=== PATIENT | female | born 1995 | race Caucasian/White ===

== ENCOUNTER 2019-02-18 18:58 | Emergency (ER) | payer MEDICAID, SELFPAY ==
[2019-02-18 19:00] VITALS: BP 125/73; PULSE 75; RESP 17; TEMP 36.4; O2SAT 100; BMI 31.7
[2019-02-18 19:14] VITALS: RESP 16
--- NOTE | 2019-02-18 19:33 | ED.VIS.FEGU ---
History of Present Illness Chief Complaint: Vag Bld, Preg Informant: Patient Pain: Pelvic Pain Onset: Today Context: Gradual Onset Quality: Cramping Location: Suprapubic Current Severity: Mild Maximum Severity: Mild Issue: Vaginal bleeding. Negative for: Passing clots, Passing tissue Onset: Today - This morning, 12 hours ago Context: Gradual Onset Timing: Intermittent Current Severity: Spotting Maximum Severity: Spotting Associated Symptoms: Negative for: Dysuria, Frequency, Urgency, Hematuria Test: Positive - 17 weeks P: 3 Narrative: Also had a couple bouts of loose diarrhea today without blood in it. Spotting started earlier and is clearly not part of her bowel movements. Past Medical History - Allergies and Home Meds Allergies/Adverse Reactions: Allergies Penicillins Allergy (Verified 02/18/19 18:59) Hives Primary Care Physician: Care Physician,No Primary [Primary Care Provider] - Past Medical History: None Lives: Spouse/ Significant Other Smoking Status: Never smoker Review of Systems General: Denies: Chills, Fever, Sweats Eyes: Denies: Visual changes - bilaterally, Diplopia ENT: Denies: Rhinorrhea, Sore throat Cardiovascular: Denies: Chest pain, Palpitations Respiratory: Denies: Dyspnea, Cough, Dyspnea on exertion Gastrointestinal: Reports: Abdominal pain, Diarrhea. Denies: Nausea, Vomiting, Melena, Hematochezia Genitourinary: Denies: Dysuria, Hematuria, Frequency Musculoskeletal: Denies: Back pain, Extremity Pain Skin: Denies: Rash, Wounds Neurological: Denies: Headache, Weakness, Numbness Physical Exam Vital Signs/Narrative: Vital Signs Temp Pulse Resp BP Pulse Ox 02/18/19 19:14 16 02/18/19 19:00 97.5 F L 75 17 125/73 H 100 Inital Vital Signs reviewed: Yes General: Well nourished, Well developed, - - Appearing, NAD Head: Normocephalic, Atraumatic Eyes: Perrl, EOMI Neck: Supple, Nontender Cardiovascular: Regular rate, Regular rhythm, No murmurs. Negative for: Tachycardia Respiratory: No distress, CTA bilaterally, Chest nontender Abdomen: Soft, Nondistended, Normal bowel sounds, Tender - Suprapubic only. Negative for: Guarding, Rebound tenderness Back: Nontender, Normal Inspection. Negative for: CVA tenderness Extremities: Nontender, No edema Skin: Normal color, No rash, No Trauma Neurological: Alert, Oriented x3, Cranial nerves II-XII grossly intact, Normal Strength, Normal Sensation, Normal Gait Psychological: Normal affect, Normal Mood Diagnostic/Tx/Re-eval Laboratory Tests 02/18/19 02/18/19 Range/Units 19:46 19:39 Urine Color Straw (Yellow) Urine Clarity Clear (Clear) Urine pH 7.0 (5.0 - 8.0) Ur Specific [place] 1.005 (1.002-1.030) Urine Protein Negative (Negative) mg/dl Urine Glucose (UA) Normal (Normal) mg/dl Urine Ketones Negative (Negative) mg/dl Urine Occult Blood Negative (Negative) /ul Urine Nitrite Negative (Negative) Urine Bilirubin Negative (Negative) mg/dL Urine Urobilinogen Normal (Normal) mg/dl Ur Leukocyte Esterase Negative (Negative) /ul Urine RBC 0 SEEN (0-5) /hpf Urine WBC 0-5 SEEN (0-5) /hpf Ur Squamous Epith Cells 0-5 SEEN (5-10) /hpf Urine Bacteria 0 SEEN (None Seen) /hpf Urine Mucus 0 SEEN (<or=2+) /hpf Blood Type O POSITIVE - Medical Decision/Diagnostic Studies Ultrasound at the bedside is very reassuring. Her blood type is O+ so RhoGam is not indicated. Also did a urinalysis given her suprapubic discomfort, it is negative. Safe for outpatient follow-up. Procedures Procedure(s): Bedside obstetric ultrasound performed by ED physician --good movement, heart tones 150, anterior placenta ED Disposition - Plan for ED Patient: Disposition: Home or Assisted Living Diagnosis: Threatened in second trimester Referrals: Back Office Medical Assistant, your [Other] (2-3 days)
[2019-02-18] MEDS: Acetaminophen 325 MG Tablet 650 MG PO (19:50)
[2019-02-18 19:52] LABS: Bacteria 0 SEEN /hpf (None Seen); Mucous, Urine 0 SEEN /hpf (<or=2+); Red Blood Cells-Urine 0 SEEN /hpf (0-5)
[2019-02-18 19:55] LABS: Color, Urine Straw (Yellow); Glucose, Dipstick Normal (Normal); Ketone-Dipstick Negative (Negative); Leukocyte Esterase-Dipstick Negative /ul (Negative); Nitrite-Dipstick Negative (Negative); Occult Blood-Urine Negative /ul (Negative); Protein-Dipstick Negative (Negative); Specific Gravity, Urine 1.005 (1.002-1.030); Urine Bilirubin Dipstick Negative (Negative); Urine Clarity Clear (Clear); Urine Urobilinogen Normal (Normal)
[2019-02-18 20:04] LABS: Squamous Epithelial Cells - UA 0-5 SEEN /hpf (5-10)
[2019-02-18 20:05] LABS: White Blood Cells 0-5 SEEN /hpf (0-5)
--- NOTE | 2019-02-18 21:00 | DCINST.ED_ITS ---
ED Disposition - Plan for ED Patient: Disposition: Home or Assisted Living Diagnosis: Threatened in second trimester Instructions: POSSIBLE MISCARRIAGE (Threatened ) Referrals: Outreach Professional, your [Other] (2-3 days)
[2019-02-18 21:15] VITALS: RESP 18
== END 2019-02-18 21:17 | disposition home or self-care (01) ==
PROVIDERS: Emergency Provider Emergency Medicine
DX: O20.0 Threatened abortion (principal); Z88.0 Allergy status to penicillin; Z3A.17 17 weeks gestation of pregnancy
CPT/HCPCS: 81001; 86900; 86901; 99283

== ENCOUNTER 2019-06-01 12:41 | Emergency (ER) | payer MEDICAID, SELFPAY ==
[2019-06-01 12:47] VITALS: BP 108/75; PULSE 87; RESP 18; TEMP 36.1; O2SAT 98; BMI 34.7
--- NOTE | 2019-06-01 13:00 | EKG12_ITS ---
Test Reason : CP Blood Pressure : / mmHG Vent. Rate : 085 BPM Atrial Rate : 085 BPM P-R Int : 200 ms QRS Dur : 070 ms QT Int : 362 ms P-R-T Axes : 059 028 048 degrees QTc Int : 430 ms Normal sinus rhythm Normal ECG Confirmed by CHELLE PEREZ, LIBORIO ([id number]), script editor STEPHEN LAIRD ([id number] on 06/03/2019 9:36:08 AM Referred By: VIKTORIA/LEV Confirmed By:ROSIE CORBETT MD
--- NOTE | 2019-06-01 13:02 | VDLE_ITS ---
Reason For Study: chest pain RIGHT LEFT GSV is normal. GSV is normal. CFV is compressible, spontaneous, phasic, CFV is compressible, spontaneous, phasic, competent and demonstrates normal competent, and demonstrates normal augmentation. augmentation. FV is compressible, spontaneous, phasic, FV is compressible, spontaneous, phasic, competent and demonstrates normal competent and demonstrates normal augmentation. augmentation. POP V is compressible, spontaneous, phasic, POP V is compressible, spontaneous, phasic, competent and demonstrates normal competent and demonstrates normal augmentation. augmentation. T/P Trunk is compressible. T/P Trunk is compressible. PTV is compressible. PTV is compressible. RT PerV is compressible. LT PerV is compressible. Procedure Exam performed in department. The exam was diagnostic. A preliminary report was called and/or faxed to Dr. Dickens. Interpretation Summary No evidence for acute deep venous thrombosis bilateral lower extremities with patent and compressible bilateral great saphenous veins. Ordering Physician: Adam Dickens Performed By: Andres Alonso RVT
--- NOTE | 2019-06-01 13:10 | RAD_ITS ---
STUDY: X-RAY CHEST REASON FOR EXAM: Female, 24 years old. Chest pressure and shortness of breath. The patient is 32 weeks . TECHNIQUE: Single AP portable view of the chest. COMPARISON: None. FINDINGS: EKG electrodes are seen. The lungs are clear and expanded. An azygos lobe is seen. This is a normal variant. There is no demonstrated pleural abnormality. Normal size heart. Normal mediastinum and raven. Normal visualized pulmonary arteries. Normal visualized aortic arch and descending thoracic aorta. Normal visualized thoracic spine. Normal visualized ribs, clavicles, and shoulders. There is no demonstrated abnormality of the visualized soft tissue structures of the upper abdomen. RAD/Chest 1 View (Portable) IMPRESSION: Normal x-ray examination of the chest. Electronically Signed: Kt Weinberg, at 13:47 EST , Service support ,
[2019-06-01 13:18] LABS: Absolute Neutrophil Count 6.5 X10^3/uL (2.0-7.7); Basophil# 0.03 X10^3/uL; Basophil% 0.3 % (0-1); Eosinophil# 0.19 X10^3/uL; Hematocrit 37.3 % (37-47); Hemoglobin 12.5 g/dL (12.0-15.0); Lymphocyte % 21.8 % (19-41); Mean Corp Hgb Conc 33.5 g/dL (32-36); Mean Corpuscular Volume 89.4 fL (81-99); Mean Platelet Vol. 8.7 fl (6.2-12.0); Monocyte# 0.79 X10^3/uL; Monocyte% 8.2 % (0-10); NRBC Flagged by Analyzer 0 % (0-5); Neutrophil # 6.47 X10^3/uL (2.7-7.7); Neutrophil % 67.2 % (47-70); Platelet Count 249 K/mm3 (150-450); RBC Distribution Width CV 12.8 % (11.6-14.6); Red Blood Count 4.17 M/mm3 (4.2-5.4); White Blood Count 9.6 K/mm3 (4.4-11.0)
[2019-06-01] MEDS: Mag Hydrox/Al Hydrox/Simeth 30 ML UDC PO (13:19)
[2019-06-01 13:39] LABS: ALB/GLOB Ratio 0.7 RATIO (0.9-2.4); AST(SGOT) 11 U/L (15-37); Alanine Aminotransfer ALT/SGPT 11 U/L (13-56); Albumin, Serum 2.8 g/dL (3.2-5.0); Alkaline Phosphatase 83 U/L (45-117); Anion Gap 8 (5-15); BUN 7 mg/dL (7-18); BUN/Creat Ratio 11.3 RATIO (10-20); Calcium,Total 8.7 mg/dL (8.5-10.1); Chloride 108 mmol/L (98-107); Creatinine, Serum 0.62 mg/dL (0.55-1.02); EST Glomerular Filtration Rate 126 mL/min (>60); Est Glom Filt Rate - Afr Amer 152 mL/min (>60); Estimated Creatinine Clearance 120.82 ml/min; Globulin 3.8 g/dL (2.2-4.2); Glucose 99 mg/dL (74-106); Potassium 3.8 mmol/L (3.5-5.1); Protein, Total 6.6 g/dL (6.4-8.2); Sodium Level 140 mmol/L (136-145)
[2019-06-01 13:41] VITALS: BP 136/86; PULSE 86; RESP 16; O2SAT 98
[2019-06-01 13:47] LABS: D-Dimer Quantitative (DVT/PE) 0.32 FEU/ug/m (0.27-0.49)
[2019-06-01 14:00] VITALS: BP 139/84; PULSE 79; RESP 16; O2SAT 97
--- NOTE | 2019-06-01 14:37 | ED.VISSUMM ---
- ER Visit Summary Date of Service: 06/01/19 Chief Complaint: Chest pain History of Present Illness: The patient is a 24 F [facility] She is a G4, P3 at 31 weeks 5 days of . She reports that she has chest pain that began 10 days ago. Is a continuous stabbing pain that is 10 to 10 hours and 7-10 currently. Is worsened by laying flat. Is relieved by nothing. She reports she is been nauseated. She does report she been short of breath at times. She denies any vomiting or diaphoresis. Patient reports that she had similar plane with her prior and that she had ulcers at that time. She has not tried antacids. She denies abdominal pain. She reports she is been nauseated, but has not vomited. She had 2 episodes of diarrhea yesterday. No blood in her stools or black tarry stools. Patient denies any vaginal bleeding or discharge. She had normal movement. No fever chills. No dysuria frequency. Physical Examination: Vitals: Stable. Afebrile. General: Well-nourished and well-developed. Head: Normocephalic atraumatic. Neck: Supple, no lymphadenopathy. No JVD. Nontender. Cardiovascular: Regular rate and rhythm. No murmurs. Respiratory: No respiratory distress. Clear to auscultation bilaterally. Abdominal: Soft, nontender, nondistended, normal bowel sounds. No guarding, rebound, or peritoneal signs. Gravid uterus. Back: Nontender. Extremities: Nontender, no edema. Skin: Normal color, no rash. Neurologic: Alert and oriented ?3. Cranial nerves II through XII are intact. Normal strength and sensation. Psych: Normal affect. Test Results: EKG is sinus at 85 with no acute changes. CBC is normal. Chem-7 is more for chloride of 108. LFTs show an ALT of 11, AST of 11, albumin 2.8. Troponin is negative. D-dimer 0.32. Bilateral lower extremity Dopplers are negative. Chest x-ray shows no acute disease. Emergency Department Course and Treatment: Patient was treated with a GI cocktail which did make her chest pain resolved. She is resting comfortably. Treatment Plan: Patient was discussed with Carmela Deutsch. She will be placed on Pepcid and instructed to follow-up at her appointment next week. Return to the emergency department for any worsening symptoms. Disposition: To home in improved and stable condition. Impression: 1. Chest pain, suspect reflux. 2. Third trimester . This note was generated with ticckle dictation software. It may contain incorrect words, spelling, and punctuation that were not noted in review of the chart prior to signing ED Disposition - Plan for ED Patient: Disposition: Home or Assisted Living Instructions: CHEST PAIN, NonCardiac Prescriptions: Famotidine [Pepcid] 20 mg PO BID #56 tab Prescription Printed Referrals: Yvonne Greenfield MD [STAFF PHYSICIAN] - Keep Kamryn appointment
[2019-06-01 14:46] VITALS: BP 150/81; PULSE 102; RESP 16; O2SAT 97
[2019-06-01] MEDS: Famotidine 20 MG Tablet 40 MG PO (14:46)
== END 2019-06-01 14:51 | disposition home or self-care (01) ==
LOC: ED 14:26
PROVIDERS: Emergency Provider Emergency Medicine
DX: O26.893 Other specified pregnancy related conditions, third trimester (principal); R11.0 Nausea; R06.02 Shortness of breath; R07.9 Chest pain, unspecified; Z3A.31 31 weeks gestation of pregnancy
CPT/HCPCS: 71045; 80053; 84484; 85025; 85379; 93005; 93970; 96360; 99285; J7040; A4216

== ENCOUNTER 2019-07-25 06:45 | Inpatient (IN) | payer MEDICAID, SELFPAY ==
[2019-07-25] VITALS (18 sets, daily range): BP systolic 103–147; BP diastolic 56–94; PULSE 65–146; RESP 11–20; TEMP 36.1–36.5; O2SAT 95–100; BMI 37.7
[2019-07-25 08:12] LABS: Absolute Lymphocyte Count 2.12 X10^3/uL (0.83-4.51); Absolute Neutrophil Count 5.1 X10^3/uL (2.0-7.7); Basophil# 0.03 X10^3/uL; Basophil% 0.4 % (0-1); Eosinophil# 0.11 X10^3/uL; Eosinophils% 1.4 % (0-5); Hematocrit 37.8 % (37-47); Hemoglobin 12.3 g/dL (12.0-15.0); Lymphocyte # 2.12 X10^3/ul (4.0); Lymphocyte % 26.1 % (19-41); Mean Corp Hgb Conc 32.5 g/dL (32-36); Mean Corpuscular Hgb 28.6 pg (27.0-32.0); Mean Corpuscular Volume 87.9 fL (81-99); Mean Platelet Vol. 9.3 fl (6.2-12.0); Monocyte# 0.67 X10^3/uL; Monocyte% 8.3 % (0-10); NRBC Flagged by Analyzer 0 % (0-5); Neutrophil # 5.14 X10^3/uL (2.7-7.7); Neutrophil % 63.3 % (47-70); Platelet Count 268 K/mm3 (150-450); RBC Distribution Width CV 13.6 % (11.6-14.6); White Blood Count 8.1 K/mm3 (4.4-11.0)
[2019-07-25] MEDS: Lactated Ringers 1,000 ML 50 ML IV (08:13)
[2019-07-25] MEDS: Oxytocin 30 units/NS 500 ml 30 UNITS/500 ML IV.SOLN IV (08:13)
--- NOTE | 2019-07-25 08:19 | PCM.HP.OB ---
- Problem List (1) 39 weeks gestation of Status: Acute (2) Multiparity Status: Acute (3) Elective induction of labor planned Status: Acute (4) Rubella non-immune status, antepartum Status: Acute (5) ADHD Status: Acute (6) History of chlamydia Status: Acute History Date of Admission: 07/25/19 Final OLIVIA: 07/29/19 Gestational age: 39 Weeks and 3 Days History of this : This is a 24 year-old, G4, P3, at 39 weeks gestational age who presents for a scheduled elective induction of labor. +Mild ctx's. No VB, LOF. Good FM. Allergies Penicillins Allergy (Verified 06/01/19 12:41) Hives Home Medications: Home Medications Multivit No.40/Iron/Folat1/Dha [Prenate Essential Softgel] 1 ea PO DAILY 06/01/19 Famotidine [Pepcid] 20 mg PO DAILY 07/25/19 Smoking Status: Never smoker Number of Fetus(es): 1 NST - FHR Rate Baby A Baseline: 130 Variability:: Moderate Accelerations:: 15 x 15 Decelerations:: None NST Reactive:: Yes FHR Category:: Category I Uterine Activity:: Ctx q 2-4 min History Past Pregnancies: Past Pregnancies Delivery Date Name GA/ Weeks Outcome Route Wt Infant Sex Labor Length Anesthesia Delivery Location Provider FOB term term term Labs: GBS neg 1 hr GTT 96 Hgb 12.7 Sequential screen neg O positive Antibody screen neg Syphilis NR Rubella equivocal Hep B neg HIV NR GC/CT neg UDS neg Expected Delivery Method: Spontaneous Vaginal Review of Systems Gynecological: Reports: - - +Ctx. No VB, LOF. Good FM Physical Exam General: Alert, No apparent distress, - - Comfortable HEENT: Atraumatic Abdomen: Soft, Non Tender, Gravid Extremities:: No edema Neurological: Neuro grossly intact ICU STAFF NURSE: Normal external genitalia Estimated gestational size: Appropriate for gestational size Presentation: Cephalic Cervix Dilation (cm): 3 Station: -2 Effacement (%): 60 Assessment/Plan All Active Problems 39 weeks gestation of (Acute) Multiparity (Acute) Elective induction of labor planned (Acute) Rubella non-immune status, antepartum (Acute) ADHD (Acute) History of chlamydia (Acute) This is a 24 year-old, G4, P3, at 39 weeks gestational age who presents for scheduled IOL. Patient requests an elective IOL at 39 weeks after discussion of r/b/a. - Admit for routine intrapartum care - Pitocin induction - GBS neg - Epidural for pain control - Pelvis adequate and fetus palpates AGA. Anticipate
[2019-07-25] MEDS: Lactated Ringers 500 ML 999 ML IV (10:06)
[2019-07-25] MEDS: fentaNYL-bupivacaine (epidural) 100 ML BAG EPIDURAL (10:51)
--- NOTE | 2019-07-25 13:15 | RAD_ITS ---
STUDY: X-RAY - ABDOMEN/PELVIS REASON FOR EXAM: Female, 24 years old. STAT C SECTION. NO INSTRUMENT OR SPONGE COUNT DONE. TECHNIQUE: Single AP view of the abdomen / pelvis. COMPARISON: None. FINDINGS: No radiopaque foreign body is seen. There is an unremarkable bowel gas pattern. The visualized liver, spleen and kidneys are grossly normal in size and morphology. Pelvic soft tissue prominence in keeping with the enlarged uterus. There is widening of the symphysis pubis. RAD/Abdomen Single View (Portable) IMPRESSION: No radiopaque foreign body is seen. Widening of the symphysis pubis. Electronically Signed: Kt Weinberg, at 14:21 EST , Service support ,
--- NOTE | 2019-07-25 13:30 | CASEMGMT ---
Social Work Labor and Delivery Reason for intervention: OB-ERT Summary: OB-ERT called for prolapsed cord. Presented back to the patient/mother of baby (MOB) room for support to MOB's support person. Support person is father of baby (FOB) Will Camarena, MOB's . Supportive encouragement provided. Accompanied FOB the surgical area, and until RN came to get the FOB to present for delivery. Remained available as needed, but no other social work support requested this date. FOB did share that this baby is the 4th for the parents, with older children ranging from ages 6 years old to age 2 at home. First delivery at [facility] for this family. Plan: Social work will follow up again prior to discharge to check on how MOB and FOB are doing, as well as to assess for any other resource needs. -DORIAN Olmos, ULTRASOUND SPECIALIST
[2019-07-25] MEDS: Oxytocin 30 units/NS 500 ml 30 UNITS/500 ML IV.SOLN 167 UNITS IV (14:00)
[2019-07-25] MEDS: Methylergonovine 0.2 MG/ML Ampul IM (14:15)
--- NOTE | 2019-07-25 14:26 | PN_ITS ---
Progress Note Delayed entry. At bedside for AROM. Pt had been feeling leaking of fluid and pad was saturated with clear fluid. Cvx 4/60/-2, head well applied. AROM performed in usual fashion for copious amounts of clear fluid. IUPC placed. No umbilical cord noted. heart rate deceleration noted, so cervix re- examined. Umbilical cord noted to be in the vagina. head elevated and emergent section called.
--- NOTE | 2019-07-25 14:32 | PCM.OPRPT ---
Problem List (1) 39 weeks gestation of Status: Acute (2) Multiparity Status: Acute (3) Elective induction of labor planned Status: Acute (4) Rubella non-immune status, antepartum Status: Acute (5) ADHD Status: Acute (6) History of chlamydia Status: Acute Report of Operation Date of Procedure: 07/25/19 Pre-Operative Diagnosis: 39 week gestation, umbilical cord prolapse, multiparity Post-Operative Diagnosis: As above Surgery/Procedure Performed:: Emergent PLTCS via pfannenstiel incision Description of Surgical Findings:: Normal-appearing uterus, bilateral tubes, bilateral ovaries. in vertex position. Placenta normal-appearing and intact with a three-vessel cord. Type of Anesthesia:: Epidural Drains: Acevedo Estimated Blood Loss (mL): 1000 Description of Procedure: heart rate decelerations were noted after artificial rupture of membranes. Cervix was checked and umbilical cord was noted to be in vagina. Verbal consent was obtained from patient for a section, and she agreed to proceed with an emergent section for cord prolapse. head was elevated and patient was taken for an emergent . The patient was taken to the operating room using her epidural for anesthesia. Betadine was used for a quick prep of the abdomen. The nurse who was elevating the head off of the cord also placed a Acevedo catheter. The patient was draped, and a scalpel was used to make a Pfannenstiel skin incision. This incision was carried down through the fascia which was incised in the midline and extended bluntly. The rectus muscles were entered in the midline bluntly. The peritoneum was entered bluntly. The incision was stretched. A low transverse incision was made on the uterus. The head, followed by body, were delivered without force. Viable male was delivered atraumatically and the cord was clamped and cut immediately. The infant was handed off to the nursery staff. The placenta was removed with manual extraction and noted to be normal-appearing with a three-vessel cord. The uterus was cleared of all clot and debris. The uterus was exteriorized from the abdomen. The uterine incision was closed in a running locked fashion using Vicryl. A second imbricating layer was performed using Vicryl. The uterine incision was noted to be hemostatic. The uterus was placed back into the abdomen. The uterine incision was again noted to be hemostatic. Arrista was placed over the uterine incision. The peritoneum was closed in a running fashion with Vicryl. The fascia was closed in a running fashion with Vicryl. The subcutaneous space was irrigated and made hemostatic with the Bovie cautery. The subcutaneous space was reapproximated with Vicryl. The skin was closed in a subcuticular fashion. A dressing was placed. Instrument counts were correct at the end of the case. An x-ray was performed given the emergent nature of the section. Grafts/Implants Used: None - Complications None - Admit VTE Documentation VTE Present on Admission: No VTE Mechan Device Prophylaxis: SCD's Delivery Classification: Stat Gestational age: 39 weeks Type of Anesthesia:: Epidural Indications for : Prolapsed Cord Amniotic Membrane Rupture Type: Artificial Amniotic Fluid Description: Clear Drain: Acevedo to straight drain Cord Entanglement: None Cord Vessel Description: 3 Vessels Infant Gender: Male (1 minute): 8 (5 minute): 9 Antibiotic Given: Clindamycin 600mg IV x1 and Gentamicin 1.5mg/kg IV x1 - Clinda and Gent ordered to be given post-operatively. No pre-op antibiotics were given Pt instructed on risks of surgery: Bleeding, Infection, Injury to surrounding structure(s) including bowel and bladder
[2019-07-25] MEDS: miSOPROStol 200 MCG Tablet 1000 MCG RECTAL (14:40)
[2019-07-25] MEDS: proCHLORPERazine 10 MG/2 ML Vial IV (14:43)
[2019-07-25] MEDS: Ondansetron 4 MG/2 ML Vial IV (16:02)
[2019-07-25] MEDS: Lactated Ringers 1,000 ML 100 ML IV (17:00)
--- NOTE | 2019-07-25 17:06 | NURSING ---
X-ray taken at 1331 for inability to perform count before emergent c/s due to prolapsed cord.
[2019-07-25 17:14] LABS: Hematocrit 32.9 % (37-47); Hemoglobin 10.7 g/dL (12.0-15.0); Mean Corp Hgb Conc 32.5 g/dL (32-36); Mean Corpuscular Hgb 28.8 pg (27.0-32.0); Mean Corpuscular Volume 88.7 fL (81-99); Platelet Count 248 K/mm3 (150-450); RBC Distribution Width CV 13.3 % (11.6-14.6); RBC Distribution Width SD 42.8 fl (35.1-43.9); Red Blood Count 3.71 M/mm3 (4.2-5.4); White Blood Count 15.8 K/mm3 (4.4-11.0)
--- NOTE | 2019-07-25 17:37 | PN_ITS ---
Progress Note Delayed entry. Called for bleeding. At bedside to examine pt. About 100 cc of blood and clot present on pad. Continuous slow bleeding noted with fundal pressure. Uterus very gently explored and lower uterine segment noted to be boggy. Methergine x 1 already given. Cytotec 1000 mcg placed rectally. CBC obtained. Pt nauseous. Will continue to c losely monitor. STROKE Vital Signs/Narrative: Vital Signs Temp Pulse Resp BP Pulse Ox 07/25/19 13:55 97.3 F L 88 18 118/89 H 98
--- NOTE | 2019-07-25 17:41 | NURSING ---
Pt vomiting during vital signs.
[2019-07-25] MEDS: Lactated Ringers 1,000 ML 999 ML IV (18:25)
--- NOTE | 2019-07-25 18:27 | NURSING ---
1820 Dr. Garcia notified of decreased urine output. 35mL over 2 hours. Pt unable to tolerate oral intake. IV fluid bolus.
--- NOTE | 2019-07-25 18:41 | NURSING ---
Pt has indwelling urinary catheter
[2019-07-25] MEDS: Ketorolac 30 MG/ML Syringe IV (19:09)
--- NOTE | 2019-07-25 20:06 | EKGRS_ITS ---
Test Reason : DYSRHYTHMIA Blood Pressure : / mmHG Vent. Rate : 070 BPM Atrial Rate : 070 BPM P-R Int : 180 ms QRS Dur : 070 ms QT Int : 376 ms P-R-T Axes : 056 025 051 degrees QTc Int : 406 ms Normal sinus rhythm with sinus arrhythmia Normal ECG When compared with ECG of 01-JUN-2019 12:48, No significant change was found Confirmed by TALAT PEREZ, ELENA ([id number]), assignment desk editor EL RAMACHANDRAN ([id number]) on 07/31/2019 8:56:46 AM Referred By: Tanisha Garcia Confirmed By:ELENA GILLILAND MD
--- NOTE | 2019-07-25 20:19 | NURSING ---
2019-respiratory at bedside and did 12 lead ekg. pt pulse ox 99-100% since having 02 via nc placed.
--- NOTE | 2019-07-25 20:55 | NURSING ---
1930- while in room, pulse ox noted to be down to 88-89% briefly and bounces back up on her own to 98-99%. pt also noting to having decreased respiratory rate of 11
--- NOTE | 2019-07-25 21:05 | NURSING ---
1930- pt states she is nauseous, tired and too out of it to hold baby for fear of dropping him. fob at her side helping with baby
--- NOTE | 2019-07-25 21:07 | PCM.PN.BLA ---
Progress Note Called for chest discomfort and O2 requirement. Bedside to examine patient. She describes centrally located chest tightness and heaviness. Denies lightheadedness, dizziness, palpitations, shortness of breath, leg pain. Pain is controlled. Nausea and vomiting has improved. She feels fatigued. Afebrile, HR 75, BP wnl, currently O2 sat 99% on 2L NC Gen: Pt fatigued and sleeping Heart: RRR Lungs: CTAB Abd: Soft, ATTP, FF@U, dressing c/d/i Ext: No edema, no calf tenderness, no sign of DVT A/P: - EKG obtained and NSR - Will wean off of O2 as able - Currently low suspicion for DVT/PE - If still requiring O2 tomorrow, will consider CTPA - Likely secondary to intra-op medication STROKE Vital Signs/Narrative: Vital Signs Temp Pulse Resp BP Pulse Ox 07/25/19 19:05 97.3 F L 75 14 108/61 95 07/25/19 18:00 97.7 F L 75 14 113/64 96
--- NOTE | 2019-07-25 21:30 | NURSING ---
1949- bbidrenita intelligence research specialist at pt bedside, d/t pulse ox dropping and respiratory rate at 11. 02 venus 2 l nc placed 1952-pt c/o feeling some chest heaviness to staci diane. pulse ox remains 99-100% while on the o2. 1955-bbidrenita intelligence research specialist out of room. ok to keep the o2 on, pt had received medication for stat c/s, will continue to monitor. 1957-called dr mccabe, made aware of above with pulse ox dropping to 88-89% and comes up on its own, however pt feeling chest heaviness and respiratory rate was down to 11. order for ekg, and make sure pt is using I.S.
--- NOTE | 2019-07-25 22:46 | NURSING ---
late entry- Dr Garcia updated on patient via phone at [id number]/25/19. Aware of EKG results, urine output 65ml over last hour, and patient oxygen remains 99-100% on 2 L NC.
[2019-07-26] VITALS (12 sets, daily range): BP systolic 107–118; BP diastolic 61–70; PULSE 78–105; RESP 15–20; TEMP 36.3–36.9; O2SAT 97–100
[2019-07-26] MEDS: Ketorolac 30 MG/ML Syringe IV ×4 (00:46→19:41)
[2019-07-26] MEDS: Enoxaparin 40 MG/0.4 ML Syringe SC (00:59)
[2019-07-26] MEDS: Lactated Ringers 1,000 ML 100 ML IV (04:01)
[2019-07-26 06:28] LABS: Hematocrit 24.7 % (37-47); Hemoglobin 8.1 g/dL (12.0-15.0); Mean Corp Hgb Conc 32.8 g/dL (32-36); Mean Corpuscular Hgb 29.1 pg (27.0-32.0); Mean Corpuscular Volume 88.8 fL (81-99); Mean Platelet Vol. 8.9 fl (6.2-12.0); Platelet Count 194 K/mm3 (150-450); RBC Distribution Width CV 13.2 % (11.6-14.6); RBC Distribution Width SD 42.9 fl (35.1-43.9); Red Blood Count 2.78 M/mm3 (4.2-5.4); White Blood Count 11.6 K/mm3 (4.4-11.0)
--- NOTE | 2019-07-26 08:23 | PN.OBGYN_ITS ---
Patient Problems: Active and Suspected Problems 39 weeks gestation of (Acute) Multiparity (Acute) Elective induction of labor planned (Acute) Rubella non-immune status, antepartum (Acute) ADHD (Acute) History of chlamydia (Acute) Subjective: Patient doing well. Denies lightheadedness, dizziness, chest pain, palpitation s, shortness of breath, leg pain. Has not yet ambulated. Urbano still in place. No nausea or vomiting. - Physical Exam Vitals/I&O's: Vital Signs Temp Pulse Resp BP Pulse Ox 97.3 F L 78 16 111/61 99 07/26/19 04:00 07/26/19 06:00 07/26/19 04:00 07/26/19 04:00 07/26/19 06:00 Oxygen Flow Rate (L/min) 1 Oxygen Delivery Method Nasal Cannula Weight: 212 lb 11.937 oz Body Mass Index (BMI) 37.7 Intake and Output for Last 24 Hours 07/24/19 07/25/19 07/26/19 23:59 23:59 23:59 Intake Total 3964.91 / 3964.91 800 / 800 Output Total 852 / 852 660 / 660 Balance 3112.91 / 3112.91 140 / 140 General: Alert, No apparent distress HEENT: Atraumatic Abdomen: Soft, Non Tender, Non-Distended, - - Incision with dressing in place and c/d/i Extremities: No edema, No Calf Tenderness Skin: No rashes Neurological: Neuro grossly intact Psych/Mental Status: Normal Affect, Appropriate Laboratory Results 07/25/19 07:45: Blood Type O POSITIVE, Antibody Screen NEGATIVE 07/25/19 17:00: WBC 15.8 H, RBC 3.71 L, Hgb 10.7 L, Hct 32.9 L, MCV 88.7, MCH 28.8, MCHC 32.5, RDW Std Deviation 42.8, RDW Coeff of Juanita 13.3, Plt Count 248, MPV 9.0 07/26/19 06:15: WBC 11.6 H, RBC 2.78 L, Hgb 8.1 L, Hct 24.7 L, MCV 88.8, MCH 29.1, MCHC 32.8, RDW Std Deviation 42.9, RDW Coeff of Juanita 13.2, Plt Count 194, MPV 8.9 Current Medications Acetaminophen (Tylenol) 1,000 mg PO Q8H PRN PRN Reason: Pain Score 1-3/10 Al Hydroxide/Mg Hydroxide (Mylanta Ii) 30 ml PO Q6H PRN PRN PRN Reason: HEARTBURN Bisacodyl (Dulcolax) 10 mg RECTAL UD PRN PRN Reason: If no BM Diphenhydramine HCl (Benadryl) 25 mg PO Q6H PRN PRN PRN Reason: ITCHING Stop: 07/26/19 14:43 Enoxaparin Sodium (Lovenox) 40 mg SC DAILY [facility] Last Admin: 07/26/19 00:59 Dose: 40 mg Documented by: Hydrocortisone (Hytone) 1 applic TOPICAL TID PRN PRN; Protocol PRN Reason: Discomfort Lactated Ringer's () 1,000 mls @ 100 mls/hr IV .Q10H [facility] Last Admin: 07/26/19 04:01 Dose: 100 mls/hr Documented by: Naloxone HCl 4 mg/ Dextrose 504 mls @ 0 mls/hr IV .Q0M PRN; Protocol PRN Reason: Respiratory depression Ibuprofen (Motrin) 600 mg PO Q6H PRN PRN PRN Reason: Pain Score 1-3/10 Ketorolac Tromethamine (Toradol) 30 mg IV Q6H [facility] Stop: 07/27/19 13:01 Last Admin: 07/26/19 06:08 Dose: 30 mg Documented by: Methylergonovine Maleate (Methergine) 0.2 mg IM X1 PRN PRN Reason: Uterine Atony Last Admin: 07/25/19 14:15 Dose: 0.2 mg Documented by: Nalbuphine HCl (Nubain) 5 mg IV Q3H PRN PRN PRN Reason: ITCHING Stop: 07/26/19 14:43 Naloxone HCl (Narcan) 0.02 mg IV Q1M PRN PRN Reason: RR <10 and pt unresponsive Ondansetron HCl (Zofran) 4 mg IV Q4H PRN PRN PRN Reason: Nausea Last Admin: 07/25/19 16:02 Dose: 4 mg Documented by: Ondansetron HCl (Zofran Odt) 4 mg PO Q4H PRN PRN PRN Reason: ITCHING Stop: 07/26/19 14:43 Oxycodone HCl (Oxyir) 5 - 10 mg PO Q4H PRN PRN PRN Reason: Pain Score 4-10/10 Prochlorperazine Edisylate (Compazine Iv) 10 mg IV Q6H PRN PRN PRN Reason: NAUSEA Last Admin: 07/25/19 14:43 Dose: 10 mg Documented by: Senna/Docusate Sodium (Senokot-S, Agueda-Colace) 0 tablet PO DAILY PRN PRN Reason: Constipation Simethicone (Mylicon) 80 mg PO PCHS PRN PRN Reason: Indigestion/stomach pain Sodium Chloride () 5 - 15 ml IV UD PRN PRN Reason: SALINE FLUSH Medical Necessity - Tobacco Use Smoking Status: Never smoker Assessment/Plan All Active Problems 39 weeks gestation of (Acute) Multiparity (Acute) Elective induction of labor planned (Acute) Rubella non-immune status, antepartum (Acute) ADHD (Acute) History of chlamydia (Acute) POD#1 s/p emergent section for cord prolapse. - PPH after delivery: HD stable. Hgb 8.1 this morning. Pt w/o symptoms of anemia. Will recheck CBC tomorrow morning - No longer requiring oxygen. No CP, SOB. VSS - UOP adequate - Will remove urbano - Encourage ambulation - Bottlefeeding - Dispo: Routine PO care
[2019-07-26] MEDS: Acetaminophen 500 MG Tablet 1000 MG PO (17:57)
[2019-07-26] MEDS: oxyCODONE 5 MG Tablet PO (19:41)
[2019-07-26] MEDS: 0.9% Saline Lock 10 ML Syringe IV (19:43)
[2019-07-27 01:34] VITALS: BP 110/60; PULSE 98; RESP 16; TEMP 36.4
[2019-07-27] MEDS: oxyCODONE 5 MG Tablet PO ×3 (01:46→17:02)
[2019-07-27 05:33] LABS: Hematocrit 23.2 % (37-47); Hemoglobin 7.4 g/dL (12.0-15.0); Mean Corp Hgb Conc 31.9 g/dL (32-36); Mean Platelet Vol. 8.8 fl (6.2-12.0); Platelet Count 188 K/mm3 (150-450); RBC Distribution Width CV 13.7 % (11.6-14.6); RBC Distribution Width SD 44.8 fl (35.1-43.9); Red Blood Count 2.55 M/mm3 (4.2-5.4); White Blood Count 8.8 K/mm3 (4.4-11.0)
[2019-07-27 05:35] LABS: Scan Indicated on CBC? Y/N NO
[2019-07-27] MEDS: Senna/Docusate Sodium 1 Tablet PO (07:58)
--- NOTE | 2019-07-27 08:21 | PCM.PN.OB ---
Patient Problems: Active and Suspected Problems 39 weeks gestation of (Acute) Multiparity (Acute) Elective induction of labor planned (Acute) Rubella non-immune status, antepartum (Acute) ADHD (Acute) History of chlamydia (Acute) Subjective: Doing well. She is ambulating around the room without any lightheadedness or dizziness. She denies chest pain, shortness of breath, palpitations, leg pain. Lochia normal. She is tolerating regular diet without nausea or vomiting. Voiding without difficulty. - Physical Exam Vitals/I&O's: Vital Signs Temp Pulse Resp BP Pulse Ox 97.5 F L 98 16 110/60 99 07/27/19 01:34 07/27/19 01:34 07/27/19 01:34 07/27/19 01:34 07/26/19 13:20 Oxygen Flow Rate (L/min) 1 Oxygen Delivery Method Room Air Weight: 212 lb 11.937 oz Body Mass Index (BMI) 37.7 Intake and Output for Last 24 Hours 07/25/19 07/26/19 07/27/19 23:59 23:59 23:59 Intake Total 3964.91 / 3964.91 1698.33 / 1698.33 Output Total 852 / 852 2310 / 2310 Balance 3112.91 / 3112.91 -611.67 / -611.67 General: Alert, No apparent distress HEENT: Atraumatic Abdomen: Soft, Non Tender, Non-Distended, - - Dressing in place c/d/i Extremities: No edema, No Calf Tenderness Skin: No rashes Neurological: Neuro grossly intact Psych/Mental Status: Normal Affect, Appropriate Laboratory Results 07/27/19 05:15: WBC 8.8, RBC 2.55 L, Hgb 7.4 L, Hct 23.2 L, MCV 91.0, MCH 29.0, MCHC 31.9 L, RDW Std Deviation 44.8 H, RDW Coeff of Juanita 13.7, Plt Count 188, MPV 8.8 Current Medications Acetaminophen (Tylenol) 1,000 mg PO Q8H PRN PRN Reason: Pain Score 1-3/10 Last Admin: 07/26/19 17:57 Dose: 1,000 mg Documented by: Al Hydroxide/Mg Hydroxide (Mylanta Ii) 30 ml PO Q6H PRN PRN PRN Reason: HEARTBURN Bisacodyl (Dulcolax) 10 mg RECTAL UD PRN PRN Reason: If no BM Enoxaparin Sodium (Lovenox) 40 mg SC DAILY [facility] Last Admin: 07/26/19 00:59 Dose: 40 mg Documented by: Hydrocortisone (Hytone) 1 applic TOPICAL TID PRN PRN; Protocol PRN Reason: Discomfort Naloxone HCl 4 mg/ Dextrose 504 mls @ 0 mls/hr IV .Q0M PRN; Protocol PRN Reason: Respiratory depression Ibuprofen (Motrin) 600 mg PO Q6H PRN PRN PRN Reason: Pain Score 1-3/10 Ketorolac Tromethamine (Toradol) 30 mg IV Q6H [facility] Stop: 07/27/19 13:01 Last Admin: 07/27/19 07:01 Dose: Not Given Documented by: Methylergonovine Maleate (Methergine) 0.2 mg IM X1 PRN PRN Reason: Uterine Atony Last Admin: 07/25/19 14:15 Dose: 0.2 mg Documented by: Naloxone HCl (Narcan) 0.02 mg IV Q1M PRN PRN Reason: RR <10 and pt unresponsive Ondansetron HCl (Zofran) 4 mg IV Q4H PRN PRN PRN Reason: Nausea Last Admin: 07/25/19 16:02 Dose: 4 mg Documented by: Oxycodone HCl (Oxyir) 5 - 10 mg PO Q4H PRN PRN PRN Reason: Pain Score 4-10/10 Last Admin: 07/27/19 06:21 Dose: 5 mg Documented by: Prochlorperazine Edisylate (Compazine Iv) 10 mg IV Q6H PRN PRN PRN Reason: NAUSEA Last Admin: 07/25/19 14:43 Dose: 10 mg Documented by: Senna/Docusate Sodium (Senokot-S, Agueda-Colace) 0 tablet PO DAILY PRN PRN Reason: Constipation Last Admin: 07/27/19 07:58 Dose: 2 tablet Documented by: Simethicone (Mylicon) 80 mg PO PCHS PRN PRN Reason: Indigestion/stomach pain Sodium Chloride () 5 - 15 ml IV UD PRN PRN Reason: SALINE FLUSH Last Admin: 07/26/19 19:43 Dose: 10 ml Documented by: Medical Necessity - Tobacco Use Smoking Status: Never smoker Assessment/Plan All Active Problems 39 weeks gestation of (Acute) Multiparity (Acute) Elective induction of labor planned (Acute) Rubella non-immune status, antepartum (Acute) ADHD (Acute) History of chlamydia (Acute) POD#2 s/p emergent C/S - Reviewed Hgb with pt this morning. She is HD stable and has no symptoms of anemia. Discussed possible need for blood transfusion if Hgb < 7 or symptoms of anemia. Will recheck CBC in AM - Again discussed w/ pt increased risk for infection given emergent nature of delivery. No signs of infection at this time - Pt doing well. Pain controlled - Dispo: Anticipate d/c tomorrow. Reviewed iron supplementation at home once no longer needing Percocet. Reviewed discharge instructions with pt and f/u in office in 1 week
[2019-07-27 09:00] VITALS: BP 119/68; PULSE 111; RESP 16; TEMP 36.7; O2SAT 97
[2019-07-27] MEDS: Enoxaparin 40 MG/0.4 ML Syringe SC (10:20)
[2019-07-27] MEDS: Ibuprofen 600 MG Tablet PO ×2 (12:34→21:22)
[2019-07-27 13:00] VITALS: BP 112/70; PULSE 96; RESP 16; TEMP 36.7; O2SAT 98
[2019-07-27 14:00] VITALS: PULSE 96
[2019-07-27] MEDS: Acetaminophen 500 MG Tablet 1000 MG PO (17:03)
[2019-07-27 21:00] VITALS: BP 122/70; PULSE 96; RESP 16; TEMP 36.5; O2SAT 98
--- NOTE | 2019-07-28 02:35 | PN.OBGYN_ITS ---
Patient Problems: Active and Suspected Problems 39 weeks gestation of (Acute) Multiparity (Acute) Elective induction of labor planned (Acute) Rubella non-immune status, antepartum (Acute) ADHD (Acute) History of chlamydia (Acute) Subjective: Doing well per patient and nursing staff. Ambulating without any lightheadednes s or dizziness. She denies chest pain, shortness of breath, palpitations, leg pain. Lochia normal. She is tolerating regular diet without nausea or vomiting. Voiding without difficulty. Bottle feeding. Planning D/C home today. - Physical Exam Vitals/I&O's: Vital Signs Temp Pulse Resp BP Pulse Ox 97.7 F L 96 16 122/70 H 98 07/27/19 21:00 07/27/19 21:00 07/27/19 21:00 07/27/19 21:00 07/27/19 21:00 Oxygen Flow Rate (L/min) 1 Oxygen Delivery Method Room Air Weight: 212 lb 11.937 oz Body Mass Index (BMI) 37.7 Intake and Output for Last 24 Hours 07/26/19 07/27/19 07/28/19 23:59 23:59 23:59 Intake Total 1698.33 / 1698.33 Output Total 2310 / 2310 Balance -611.67 / -611.67 General: Alert, Oriented x3, Cooperative HEENT: Atraumatic, Normocephalic Neck: Trachea Midline Lungs: Clear to auscultation, Normal air movement, No rhonchi, No wheeze Cardiovascular: Regular rate, Regular Rhythm, No murmurs Abdomen: Bowel Sounds Present, Soft, - - Fundus firm 3 below U. Dressing dry and intact Extremities: No edema Psych/Mental Status: Normal Affect, Appropriate Laboratory Results 07/27/19 05:15: WBC 8.8, RBC 2.55 L, Hgb 7.4 L, Hct 23.2 L, MCV 91.0, MCH 29.0, MCHC 31.9 L, RDW Std Deviation 44.8 H, RDW Coeff of Juanita 13.7, Plt Count 188, MPV 8.8 Current Medications Acetaminophen (Tylenol) 1,000 mg PO Q8H PRN PRN Reason: Pain Score 1-3/10 Last Admin: 07/27/19 17:03 Dose: 1,000 mg Documented by: Al Hydroxide/Mg Hydroxide (Mylanta Ii) 30 ml PO Q6H PRN PRN PRN Reason: HEARTBURN Bisacodyl (Dulcolax) 10 mg RECTAL UD PRN PRN Reason: If no BM Enoxaparin Sodium (Lovenox) 40 mg SC DAILY [facility] Last Admin: 07/27/19 10:20 Dose: 40 mg Documented by: Hydrocortisone (Hytone) 1 applic TOPICAL TID PRN PRN; Protocol PRN Reason: Discomfort Naloxone HCl 4 mg/ Dextrose 504 mls @ 0 mls/hr IV .Q0M PRN; Protocol PRN Reason: Respiratory depression Ibuprofen (Motrin) 600 mg PO Q6H PRN PRN PRN Reason: Pain Score 1-3/10 Last Admin: 07/27/19 21:22 Dose: 600 mg Documented by: Methylergonovine Maleate (Methergine) 0.2 mg IM X1 PRN PRN Reason: Uterine Atony Last Admin: 07/25/19 14:15 Dose: 0.2 mg Documented by: Naloxone HCl (Narcan) 0.02 mg IV Q1M PRN PRN Reason: RR <10 and pt unresponsive Ondansetron HCl (Zofran) 4 mg IV Q4H PRN PRN PRN Reason: Nausea Last Admin: 07/25/19 16:02 Dose: 4 mg Documented by: Oxycodone HCl (Oxyir) 5 - 10 mg PO Q4H PRN PRN PRN Reason: Pain Score 4-10/10 Last Admin: 07/27/19 17:02 Dose: 5 mg Documented by: Prochlorperazine Edisylate (Compazine Iv) 10 mg IV Q6H PRN PRN PRN Reason: NAUSEA Last Admin: 07/25/19 14:43 Dose: 10 mg Documented by: Senna/Docusate Sodium (Senokot-S, Agueda-Colace) 0 tablet PO DAILY PRN PRN Reason: Constipation Last Admin: 07/27/19 07:58 Dose: 2 tablet Documented by: Simethicone (Mylicon) 80 mg PO PCHS PRN PRN Reason: Indigestion/stomach pain Sodium Chloride () 5 - 15 ml IV UD PRN PRN Reason: SALINE FLUSH Last Admin: 07/26/19 19:43 Dose: 10 ml Documented by: Medical Necessity - Tobacco Use Smoking Status: Never smoker Assessment/Plan All Active Problems 39 weeks gestation of (Acute) Multiparity (Acute) Elective induction of labor planned (Acute) Rubella non-immune status, antepartum (Acute) ADHD (Acute) History of chlamydia (Acute) A:POD #3 for LTCS Acute blood loss anemia P: 1) Hemodynamically stable and asymptomatic. Awaiting morning CBC. If >7.0 and asymptomatic, ok for discharge. 2) Discharge instructions reviewed 3) Percocet for pain relief. Iron supplementation for anemia. Colace for stool softener 4) Follow up in 1 week and 6 weeks 5) Discharge home today
[2019-07-28 02:45] VITALS: BP 106/64; PULSE 85; RESP 16; TEMP 36.4; O2SAT 96
--- NOTE | 2019-07-28 03:05 | DCINST_ITS ---
Discharge Diet: No Restrictions Discharge Activity: Return to Normal Activity, May Not Drive - for 2 weeks or while taking narcotic pain meds., May Shower, May Take a Tub Bath - in 7 days. May resume sexual activity in: 4-6 weeks Lifting Restrictions: 20 pounds Additional Activity Instructions:: Nothing in the vagina for 4-6 weeks. You may return to work/school in 6 weeks. Call your doctor if your incision/area has: Continuous Slow Oozing, Sudden Increased Bleeding, Increased Pain/ Swelling, Increased Redness, Foul Smelling Discharge Call your doctor if you observe: Fever of 101 or Higher, Inability to urinate, Inability to have a bowel movement, Using more than one pad per hour, Shortness of breath, Chest pain, Increased palpitations (irregular heartbeat), Calf discomfort, Uncontrolled pain Suture Line Care: Avoid Pulling/Pushing, Avoid Pinching/Bending Additional Instructions: If you experience any of the following, contact your healthcare provider. * Bleeding that soaks a pad every hour for 2 hours * Fever 100.4 or higher * Unrelieved incision or abdominal pain * Swelling, redness, discharge or bleeding from your incision or episiotomy site * Your incision begins to separate * Problems urinating (including inability to urinate or burning while urinating). * Visual changes * Severe headache * Flu-like symptoms * Pain or redness in one of both of your breasts * Pain, warmth, tenderness or swelling in your legs, especially the calf area * Frequent nausea and vomiting * Symptoms of depression or anxiety If you experience any of the following, call 911 or go to the nearest Emergency Room. * Chest pain * Problems breathing * Seizure activity * Partial or complete paralysis of a body part, slurred speech, weakness or drooping of the face, or a sudden inability to walk or hold your balance Allergies/Adverse Reactions: Allergies Penicillins Allergy (Verified 06/01/19 12:41) Hives Medications to take at Discharge Multivit No.40/Iron/Folat1/Dha [Prenate Essential Softgel] 1 ea PO DAILY 06/01/19 Famotidine [Pepcid] 20 mg PO DAILY 07/25/19 Ferrous Sulfate 325 mg PO BIDCM #60 tab 07/28/19 Oxycodone HCl/Acetaminophen [Percocet 5/325] 1 - 2 tab PO Q4H PRN PRN 7 Days #20 tab 07/28/19 The following prescriptions were given: Ferrous Sulfate 325 mg PO BIDCM #60 tab Transmission Status: Received by [facility] Oxycodone HCl/Acetaminophen [Percocet 5/325] 1 - 2 tab PO Q4H PRN PRN 7 Days #20 tab PRN Reason: Pain Transmission Status: Sent to [facility] Follow-Up: Call to make an appointment with your doctor for an incision check in 1-2 weeks. You will also need a 6 week post- follow up appointment. Test results from this visit will be discussed in further detail at your follow- up appointment, if applicable. Please Follow Up With: Tanisha Garcia DO Primary Care Physician: Care Physician,No Primary [Primary Care Provider] -
[2019-07-28 05:22] LABS: Hematocrit 23.2 % (37-47); Hemoglobin 7.5 g/dL (12.0-15.0); Mean Corp Hgb Conc 32.3 g/dL (32-36); Mean Corpuscular Hgb 29.1 pg (27.0-32.0); Mean Corpuscular Volume 89.9 fL (81-99); Mean Platelet Vol. 8.4 fl (6.2-12.0); Platelet Count 202 K/mm3 (150-450); RBC Distribution Width SD 45.5 fl (35.1-43.9); Red Blood Count 2.58 M/mm3 (4.2-5.4); White Blood Count 7.3 K/mm3 (4.4-11.0)
[2019-07-28] MEDS: Ibuprofen 600 MG Tablet PO (05:22)
[2019-07-28] MEDS: oxyCODONE 5 MG Tablet PO (07:23)
[2019-07-28 08:25] VITALS: BP 109/70; PULSE 92; RESP 14; TEMP 36.6
[2019-07-28] MEDS: Senna/Docusate Sodium 1 Tablet PO (09:59)
[2019-07-28] MEDS: Enoxaparin 40 MG/0.4 ML Syringe SC (10:00)
== END 2019-07-28 10:45 | disposition home or self-care (01) | DRG 540 ==
PROVIDERS: Admitting Provider Obstetrics & Gynecology; Referring Provider Obstetrics & Gynecology; Visit Provider Obstetrics & Gynecology
DX: O69.0XX0 Labor and delivery complicated by prolapse of cord, not applicable or unspecified (principal); O76 Abnormality in fetal heart rate and rhythm complicating labor and delivery; O72.1 Other immediate postpartum hemorrhage; O90.81 Anemia of the puerperium; D62 Acute posthemorrhagic anemia; Z88.0 Allergy status to penicillin; Z3A.39 39 weeks gestation of pregnancy; Z37.0 Single live birth
CPT/HCPCS: 59025; 59050; 74018; 85025; 85027; 86850; 86900; 86901; 93005; 99218; J7120; A4216; G0378; J2405

== ENCOUNTER 2021-10-30 11:35 | Inpatient (IN) | payer MEDICAID, SELFPAY ==
[2021-10-30] VITALS (111 sets, daily range): BP systolic 117–177; BP diastolic 59–103; PULSE 79–146; TEMP 36.6–36.9; O2SAT 98–100; BMI 41.1
[2021-10-30] MEDS: Lactated Ringers 1,000 ML 50 ML IV (12:10)
[2021-10-30 12:34] LABS: Absolute Lymphocyte Count 2.25 X10^3/uL (0.83-4.51); Basophil# 0.03 X10^3/uL; Basophil% 0.4 % (0-1); Eosinophil# 0.07 X10^3/uL; Eosinophils% 0.9 % (0-5); Hemoglobin 11.7 g/dL (12.0-15.0); Lymphocyte # 2.25 X10^3/ul (0.83-4.51); Lymphocyte % 27.7 % (19-41); Mean Corp Hgb Conc 32.5 g/dL (32-36); Mean Corpuscular Hgb 27.9 pg (27.0-32.0); Mean Corpuscular Volume 85.7 fL (81-99); Mean Platelet Vol. 9.6 fl (6.2-12.0); Monocyte# 0.74 X10^3/uL; Monocyte% 9.1 % (0-10); NRBC Flagged by Analyzer 0 % (0-5); Neutrophil % 61.5 % (47-70); Platelet Count 283 K/mm3 (150-450); RBC Distribution Width CV 13.9 % (11.6-14.6); RBC Distribution Width SD 43.2 fl (35.1-43.9); White Blood Count 8.1 K/mm3 (4.4-11.0)
--- NOTE | 2021-10-30 13:05 | HP.PCM.OB_ITS ---
HPI - General General Date of Admission: 10/30/21 HPI Narrative LOUISA WRIGHT, is a 26 F at 40.2 weeks gestation here for induction of labor for TOLAC. Patient has 3 previous vaginal deliveries and last delivery was an emergent primary section for a cord prolapse. complicated by obesity. Maternal Data Information OLIVIA Calculator Estimated Delivery Date Method Current WG Current Estimate 10/28/21 Manual 40w 2d PFSH PFSH Home Medications multivit [id number] 1-dha 1 ea PO DAILY 06/01/19 [History Last Taken 10/30/21 08:00] famotidine 20 mg PO DAILY 07/25/19 [History Last Taken 10/29/21 17:00] Allergy/AdvReac Type Severity Reaction Status Date / Time Penicillins Allergy Hives Verified 05/26/20 10:24 Surgical History History of surgery Previous section Social History Smoking Status: Never smoker History Elective abortions Hx Para 4 Spontaneous abortions Hx # Term Pregnancies Ectopic pregnancies Hx # Pregnancies Multiple births # of living children NST FHR Rate Baby A Baseline: 145 Variability:: Moderate Accelerations:: 15 x 15 Decelerations:: None NST Reactive:: Yes FHR Category:: Category I Uterine Activity:: 2-4 ROS Eyes Eyes: Denies blurry vision, change in vision or spots in vision ENT HEENT: Denies dizziness or headache(s) Cardiovascular Cardiovascular: Denies abdominal pain, chest pain or dyspnea Respiratory/Chest Respiratory/Chest: Denies cough, dyspnea, shortness of breath at rest or short ness of breath with exertion Gastrointestinal Gastrointestinal: Denies abdominal pain, diarrhea or vomiting Genitourinary Genitourinary: Denies change in urinary stream, difficulty urinating or dysuria Musculoskeletal Musculoskeletal: Reports none Integumentary Integumentary: Denies rash Neurologic Neurologic: Denies dizziness, headache(s), memory loss or weakness Psychiatric Psychiatric: Reports none Vital Signs Vital Signs Vital Signs: 10/30/21 12:08 10/30/21 12:15 10/30/21 13:39 Temperature 98.2 F 98.2 F Temperature Source Temporal Pulse Rate 88 83 Blood Pressure 134/82 H 129/89 H BP Systolic 134 129 BP Diastolic 82 89 Pulse Ox 98 10/30/21 14:00 10/30/21 14:05 10/30/21 14:06 Temperature Temperature Source Pulse Rate 93 86 88 Blood Pressure 154/84 H 144/75 H BP Systolic 154 144 BP Diastolic 84 75 Pulse Ox 98 99 10/30/21 14:10 10/30/21 14:11 10/30/21 14:15 Temperature Temperature Source Pulse Rate 85 99 104 H Blood Pressure 144/80 H BP Systolic 144 BP Diastolic 80 Pulse Ox 98 98 10/30/21 14:20 10/30/21 14:22 10/30/21 14:25 Temperature Temperature Source Pulse Rate 98 94 117 H Blood Pressure 147/91 H BP Systolic 147 BP Diastolic 91 Pulse Ox 98 98 10/30/21 14:27 10/30/21 14:30 10/30/21 14:32 Temperature Temperature Source Pulse Rate 95 83 85 Blood Pressure 147/87 H 145/86 H BP Systolic 147 145 BP Diastolic 87 86 Pulse Ox 99 10/30/21 14:35 10/30/21 14:37 10/30/21 14:40 Temperature Temperature Source Pulse Rate 87 82 91 Blood Pressure 146/86 H BP Systolic 146 BP Diastolic 86 Pulse Ox 99 99 10/30/21 14:41 10/30/21 14:45 10/30/21 14:46 Temperature Temperature Source Pulse Rate 96 91 93 Blood Pressure 149/87 H 143/86 H BP Systolic 149 143 BP Diastolic 87 86 Pulse Ox 100 10/30/21 14:53 10/30/21 14:55 10/30/21 14:56 Temperature 97.9 F Temperature Source Pulse Rate 89 85 Blood Pressure 135/81 H BP Systolic 135 BP Diastolic 81 Pulse Ox 99 10/30/21 14:58 10/30/21 15:02 10/30/21 15:03 Temperature Temperature Source Pulse Rate 85 79 88 Blood Pressure 144/83 H BP Systolic 144 BP Diastolic 83 Pulse Ox 99 99 10/30/21 15:07 10/30/21 15:08 10/30/21 15:12 Temperature Temperature Source Pulse Rate 91 86 88 Blood Pressure 131/83 H 137/81 H BP Systolic 131 137 BP Diastolic 83 81 Pulse Ox 99 10/30/21 15:13 10/30/21 15:16 10/30/21 15:18 Temperature Temperature Source Pulse Rate 87 93 86 Blood Pressure 141/84 H BP Systolic 141 BP Diastolic 84 Pulse Ox 99 98 10/30/21 15:21 10/30/21 15:23 10/30/21 15:26 Temperature Temperature Source Pulse Rate 104 H 96 89 Blood Pressure 133/79 H 140/81 H BP Systolic 133 140 BP Diastolic 79 81 Pulse Ox 99 10/30/21 15:28 10/30/21 15:31 10/30/21 15:33 Temperature Temperature Source Pulse Rate 94 96 89 Blood Pressure 141/86 H BP Systolic 141 BP Diastolic 86 Pulse Ox 99 99 10/30/21 15:36 10/30/21 15:38 10/30/21 15:41 Temperature Temperature Source Pulse Rate 87 90 91 Blood Pressure 146/83 H 140/87 H BP Systolic 146 140 BP Diastolic 83 87 Pulse Ox 99 10/30/21 16:12 10/30/21 17:00 10/30/21 17:01 Temperature 98.2 F Temperature Source Pulse Rate 93 115 H Blood Pressure 131/86 H 147/93 H BP Systolic 131 147 BP Diastolic 86 93 Pulse Ox Weight Weight: 232 lb 5.875 oz Body Mass Index (BMI) 41.1 Physical Exam Const alert, oriented x3 and no apparent distress General Appearance: cooperative Orientation / Consciousness: awake Exam Limitations: no limitations HEENT normocephalic Head and Scalp: normal to inspection Eyes General Eye: normal appearance of both eyes Neck full ROM and no lymphadenopathy Lymph Lymphatic: no lymphadenopathy noted Chest inspection of chest normal Resp normal respiratory effort, normal air movement and clear to auscultation bilaterally Effort and Inspection: able to speak in complete sentences and symmetric chest movement Cardio regular rate and regular rhythm GI normal to inspection, nondistended, normoactive bowel sounds Manual OB Exam: presentation cephalic and dilated 4 Amniotic Fluid: no amniotic fluid noted Back/Spine normal ROM Extremity full ROM and no calf tenderness Skin no rashes or lesions noted General Skin Exam: no breakdown Neuro oriented x3 and CN's II-XII intact bilaterally Psych mental status grossly normal and thought process normal Labs Labs Labs: Blood Type O POSITIVE Antibody Screen NEGATIVE Hct 36.0 % (37-47) L Hgb 11.7 g/dL (12.0-15.0) L Rhogam given: No Rubella- immune HB- neg HC- neg RPR- NR HIV- NR GBS- negative Assessment & Plan (1) Elective induction of labor planned: (2) Multiparity: (3) Previous section complicating : (4) 40 weeks gestation of : (5) Obesity affecting in third trimester, antepartum: PLAN: Admit to L&D- Desires TOLAC Routine labs Start IV fluids and run per orders Start Pitocin at 2 mu/min and increase per policy NST reactive GBS negative Dr. Greenfield aware of induction and is collaborating physician
[2021-10-30] MEDS: Oxytocin 30 units/NS 500 ml 30 UNITS/500 ML IV.SOLN IV (15:02)
[2021-10-30] MEDS: Lactated Ringers 1,000 ML 200 ML IV ×3 (16:24→23:31)
[2021-10-30] MEDS: fentaNYL-bupivacaine (epidural) 100 ML BAG EPIDURAL ×2 (17:06→23:12)
--- NOTE | 2021-10-30 17:16 | PCM.PN.BLA ---
Progress Note Patient seen at bedside. Epidural catheter placed without starting pump. Has been sitting on birthing ball and ambulating in hallways. Physical Exam Const alert and no apparent distress General Appearance: cooperative and comfortable Exam Limitations: no limitations HEENT normocephalic Eyes General Eye: normal appearance of both eyes Neck full ROM General: normal visual inspection Chest Chest: symmetrical chest wall rise Resp normal respiratory effort and normal air movement Effort and Inspection: symmetric chest movement Auscultation: clear to auscultation bilaterally Cardio regular rate and regular rhythm GI normal to inspection, nondistended, normoactive bowel sounds Back/Spine normal ROM Extremity full ROM and no calf tenderness General Extremity: normal exam except as noted Skin no rashes or lesions noted Neuro CN's II-XII intact bilaterally Psych mental status grossly normal Assessment & Plan Assessment/Plan (1) 40 weeks gestation of : (2) Obesity affecting in third trimester, antepartum: (3) Previous section complicating : (4) Multiparity: (5) Elective induction of labor planned: PLAN: CE- 4.5/70/-2 AROM for copious amounts of clear fluid IUPC and ISE placed without difficulty Continue present management Dr. Greenfield remains on unit Anticipate
[2021-10-30 18:06] LABS: Hepatitis C Antibody Non-Reactive (Nonreactive)
[2021-10-30 18:33] LABS: AST(SGOT) 17 U/L (15-37); Alanine Aminotransfer ALT/SGPT 13 U/L (13-56); Creatinine, Serum 0.66 mg/dL (0.55-1.02); EST Glomerular Filtration Rate 114 mL/min (>60); Est Glom Filt Rate - Afr Amer 138 mL/min (>60); Estimated Creatinine Clearance 106.85 ml/min; Uric Acid 5.9 mg/dL (2.6-6.0)
[2021-10-30] MEDS: Mag Hydrox/Al Hydrox/Simeth 30 ML UDC PO (19:40)
[2021-10-30 20:04] LABS: Protein, Urine (Random) 11.6 mg/dL (<11.9); Protein:Creat Ratio 270 mg/g CRE (0-200)
[2021-10-31] VITALS (24 sets, daily range): BP systolic 113–176; BP diastolic 65–99; PULSE 82–127; RESP 16–20; TEMP 36.2–37.4; O2SAT 92–99
[2021-10-31] MEDS: DiphenhydrAMINE 50 MG/ML Syringe IV (00:20)
[2021-10-31] MEDS: Ondansetron 4 MG/2 ML Vial IV (00:27)
[2021-10-31] MEDS: Oxytocin 30 units/NS 500 ml 30 UNITS/500 ML IV.SOLN 334 UNITS IV (03:05)
--- NOTE | 2021-10-31 03:17 | EX.PCM.OBRPT ---
Assessment & Plan (1) Vaginal after (): Maternal Data Information OLIVIA Calculator Estimated Delivery Date Method Current WG Current Estimate 10/28/21 Manual 40w 3d Vaginal Delivery Maternal Presentation Maternal Presentation: Elective Induction Maternal Presentation: at 40.2 weeks gestation for elective induction for Obesity and TOLAC. Type of Induction: Pitocin and Amniotomy Operative Information Date of Procedure: 10/31/21 Pre-Operative Diagnosis: Term gestation, TOLAC Post-Operative Diagnosis: , viable male Surgery / Procedure Performed: Type of Anesthesia: Epidural Drain: Acevedo to straight drain Estimated Blood Loss: 200 Time of Delivery: 03:03 Findings Description of Procedure: Called to bedside due to patient feeling increased rectal pressure. Complete dilation and +1 station. With 2 pushes and minimal maternal effort, head delivered followed by anterior shoulder and remainder of infant. Vigorous male placed on maternal abdomen and was attended to by nursing staff. Pitocin IV started for active management of the third stage of labor. 3 vessel cord clamped and cut by FOB after delayed cord clamping. Cord blood collected and sent. Placenta delivered spontaneously and intact. Vagina and perineum intact. Hemostasis obtained. Fundus firm 1 below U. EBL 200 cc, APGARS 8/9. Infant and patient bonding well at this time. Dr. Uribe on unit and notified of delivery. Presentation: Vertex Amniotic Membrane Rupture Type: Artificial Time of Membrane Rupture: 1645 Amniotic Fluid Description: Clear Placental Delivery Description: Spontaneous Placenta Disposition: [facility] Cord Vessel Description: 3 Vessels Cord Entanglement: None A Gender: Male (1 minute): 8 (5 minute): 9 Delayed Cord Clamping: Yes Post Vaginal Delivery Medications Given After Delivery: IV Pitocin Episiotomy Description: None Laceration: None Complication Complications: None
[2021-10-31] MEDS: Naproxen 500 MG Tablet PO ×2 (06:21→19:28)
[2021-10-31] MEDS: Acetaminophen 500 MG Tablet 1000 MG PO (13:42)
--- NOTE | 2021-10-31 15:22 | NURSING ---
Report received from Marielena PALMER, taking over pt and infant care at this time.
[2021-11-01 03:23] VITALS: BP 137/93; PULSE 85; RESP 16; TEMP 36.6
[2021-11-01] MEDS: Hydrocortisone 2.5% Crm 1 APPLIC TOPICAL (03:27)
[2021-11-01] MEDS: Acetaminophen 500 MG Tablet 1000 MG PO (03:27)
[2021-11-01 07:45] VITALS: BP 128/75; PULSE 92; RESP 18; TEMP 36.4; O2SAT 95
[2021-11-01] MEDS: Naproxen 500 MG Tablet PO (07:52)
--- NOTE | 2021-11-01 08:51 | PCM.PN.OB ---
Subjective Subjective Patient seen at bedside. Denies any pain. Ambulating and voiding without difficulty. Lochia decreasing. Formula feeding infant but planning to pump and bottle feed once home. Desires discharge home today. Objective Data Objective Data Vital Signs: Vital Signs Temp Pulse Resp BP Pulse Ox 97.5 F L 92 18 128/75 H 95 11/01/21 07:45 11/01/21 07:45 11/01/21 07:45 11/01/21 07:45 11/01/21 07:45 Oxygen Delivery Method Room Air Weight: 232 lb 5.875 oz Body Mass Index (BMI) 41.1 Intake & Output: Intake and Output for Last 24 Hours 10/30/21 10/31/21 11/01/21 23:59 23:59 23:59 Intake Total 3464.50 / 3464.50 1759.70 / 1759.70 Output Total 500 / 500 900 / 900 Balance 2964.50 / 2964.50 859.70 / 859.70 Lab / Micro Data Result Diagrams: 10/30/21 12:10 10/30/21 18:06 ROS Eyes Eyes: Denies blurry vision, change in vision or spots in vision ENT HEENT: Denies dizziness or headache(s) Cardiovascular Cardiovascular: Denies abdominal pain, chest pain or dyspnea Respiratory/Chest Respiratory/Chest: Denies cough, dyspnea, shortness of breath at rest or shortness of breath with exertion Gastrointestinal Gastrointestinal: Denies abdominal pain, diarrhea or vomiting Genitourinary Genitourinary: Denies change in urinary stream, difficulty urinating or dysuria Musculoskeletal Musculoskeletal: Reports none Integumentary Integumentary: Denies rash Neurologic Neurologic: Denies dizziness, headache(s), memory loss or weakness Physical Exam Const alert and no apparent distress General Appearance: cooperative and comfortable Exam Limitations: no limitations HEENT normocephalic Eyes General Eye: normal appearance of both eyes Neck full ROM General: normal visual inspection Chest Chest: symmetrical chest wall rise Resp normal respiratory effort and normal air movement Effort and Inspection: symmetric chest movement Auscultation: clear to auscultation bilaterally Cardio regular rate and regular rhythm GI normal to inspection, nondistended, normoactive bowel sounds Back/Spine normal ROM Extremity full ROM and no calf tenderness General Extremity: normal exam except as noted Skin no rashes or lesions noted Neuro CN's II-XII intact bilaterally Psych mental status grossly normal Assessment & Plan (1) Vaginal after (): (2) Obesity affecting in third trimester, antepartum: (3) 40 weeks gestation of : PLAN: PPD 2 Routine care D/C home with follow up in office
--- NOTE | 2021-11-01 08:55 | PCM.DC ---
Discharge Instructions Diet Discharge Diet: No restrictions Activity May resume sexual activity in: 6-8 weeks Weight Bearing Status: Weight bearing as tolerated Dressing / Incision Call your doctor if you observe: Fever of 101 or Higher, Inability to urinate, Using more than 1 pad per hour, Shortness of breath, Chest pain, Calf discomfort and Uncontrolled pain Follow Up Care Please Follow Up With: Meghan Zaragoza CNM When: 2 weeks virtual visit/ 6 weeks in office Test Results: Test results from this visit will be discussed in further detail at your follow-up appointment, if applicable. Discharge Plan Admission Admit Date/Time: 10/30/21 11:35 Primary Reason for Your Visit: Labor and Delivery Attending Provider: Meghan Zaragoza Primary Care Provider: Care Physician,No Primary Discharge Orders/Prescriptions Prescriptions: No Action multivit [id number] 1-dha 1 EACH capsule 1 ea PO DAILY RF: 0 famotidine 20 MG tablet 20 mg PO DAILY RF: 0 Referrals / Follow Up: Care Physician,No Primary [Primary Care Provider] - Disposition Disposition (needs filled in before D/C Order can be placed): Home, Self Care
--- NOTE | 2021-11-01 10:38 | NURSING ---
Scheduled pt follow up appointment with Nahid DUPONT on Tuesday at 1400. Unable to get shot dropper appointment until Tuesday and shot dropper would like pt seen Tuesday or Tuesday.
--- NOTE | 2021-11-05 15:26 | NURSING ---
no answer on follow up phone call, left voicemail.
== END 2021-11-01 10:55 | disposition home or self-care (01) | DRG 560 ==
PROVIDERS: Obstetrics & Gynecology; Admitting Provider Advanced Practice Midwife; Visit Provider Advanced Practice Midwife
DX: O34.219 Maternal care for unspecified type scar from previous cesarean delivery (principal); Z37.0 Single live birth; E66.9 Obesity, unspecified; O48.0 Post-term pregnancy; O99.214 Obesity complicating childbirth; Z3A.40 40 weeks gestation of pregnancy
CPT/HCPCS: 59025; 59050; 82565; 82570; 84156; 84450; 84460; 84550; 85025; 86803; 86850; 86900; 86901; 99218; J7120; G0378; J2405

== ENCOUNTER 2023-10-27 07:15 | Inpatient (IN) | payer MEDICAID, SELFPAY ==
[2023-10-27] VITALS (53 sets, daily range): BP systolic 110–141; BP diastolic 63–87; PULSE 82–166; RESP 14–17; TEMP 36.3–37.1; O2SAT 80–100; BMI 40.4
[2023-10-27] MEDS: Lactated Ringers 1,000 ML 50 ML IV (07:40)
[2023-10-27 08:07] LABS: Absolute Lymphocyte Count 1.44 X10^3/uL (0.83-4.51); Absolute Neutrophil Count 6.7 X10^3/uL (2.0-7.7); Basophil# 0.02 X10^3/uL; Basophil% 0.2 % (0-1); Eosinophil# 0.08 X10^3/uL; Eosinophils% 0.9 % (0-5); Hematocrit 36.7 % (37-47); Hemoglobin 12.2 g/dL (12.0-15.0); Lymphocyte # 1.44 X10^3/ul (0.83-4.51); Lymphocyte % 16.1 % (19-41); Mean Corp Hgb Conc 33.2 g/dL (32-36); Mean Corpuscular Hgb 29.5 pg (27.0-32.0); Mean Corpuscular Volume 88.6 fL (81-99); Mean Platelet Vol. 9.2 fl (6.2-12.0); Monocyte# 0.73 X10^3/uL; Monocyte% 8.1 % (0-10); NRBC Flagged by Analyzer 0 % (0-5); Neutrophil # 6.66 X10^3/uL (2.7-7.7); Neutrophil % 74.3 % (47-70); Platelet Count 234 K/mm3 (150-450); RBC Distribution Width CV 13.6 % (11.6-14.6); RBC Distribution Width SD 43.8 fl (35.1-43.9); Red Blood Count 4.14 M/mm3 (4.2-5.4)
--- NOTE | 2023-10-27 08:47 | HP.PCM.OB_ITS ---
HPI - General General Date of Admission: 10/27/23 Date of Service: 10/27/23 Chief Complaint: IOL HPI Narrative LOUISA WRIGHT, is a 28 F who presents IOL hx of c/s for cord prolapse. Successful since Maternal Data Information Final OLIVIA: 10/29/23 Gestational age: 39+[address] [facility] Medical History 40 weeks gestation of Elective induction of labor planned Multiparity Obesity affecting in third trimester, antepartum Vaginal after () Home Medications multivit no.40-iron 18 mg-folate comb no.1 1 mg-dha 300 mg capsule 1 ea PO DAILY 06/01/19 [History Last Taken 10/26/23 10:00] famotidine 20 mg tablet 20 mg PO DAILY heartburn 07/25/19 [History Last Taken 10/26/23 10:00] Allergy/AdvReac Type Severity Reaction Status Date / Time Penicillins Allergy Hives Verified 10/27/23 07:27 Surgical History History of surgery Previous section Previous section complicating Social History Smoking Status: Never smoker History Elective abortions Hx Para 5 Spontaneous abortions Hx # Term Pregnancies Ectopic pregnancies Hx # Pregnancies Multiple births # of living children NST FHR Rate Baby A Baseline: 150 Variability:: Moderate Accelerations:: 15 x 15 Decelerations:: None NST Reactive:: Yes FHR Category:: Category I Uterine Activity:: irregular ROS Constitutional Constitutional: Denies fatigue, fever(s) or malaise Eyes Eyes: Denies change in vision ENT HEENT: Denies dizziness or headache(s) Cardiovascular Cardiovascular: Denies chest pain, dyspnea or lightheadedness Respiratory/Chest Respiratory/Chest: Denies cough or dyspnea Gastrointestinal Gastrointestinal: Denies change in bowel habits Genitourinary Genitourinary: Denies burning urination or genital lesions Integumentary Integumentary: Denies rash Neurologic Neurologic: Denies confusion, dizziness, headache(s), numbness or weakness Vital Signs Vital Signs Vital Signs: 10/27/23 07:48 10/27/23 07:48 10/27/23 07:48 Temperature Temperature Source Temporal Pulse Rate 101 H Respiratory Rate Blood Pressure 132/81 H BP Systolic 132 BP Diastolic 81 Pulse Ox 10/27/23 07:48 10/27/23 07:48 10/27/23 07:48 Temperature 97.4 F L Temperature Source Pulse Rate Respiratory Rate 16 Blood Pressure BP Systolic BP Diastolic Pulse Ox 97 Weight Weight: 103.419 kg Body Mass Index (BMI) 40.4 Physical Exam Const alert and no apparent distress General Appearance: cooperative HEENT normocephalic Resp normal respiratory effort GI soft to palpation GI Narrative: gravid, nontender, appropriate for gestational age Manual OB Exam: dilated 3, effaced 50 and station -2 Extremity no calf tenderness General Extremity: edema Skin no wounds Rashes: No rashes noted Psych activity/motor behavior normal Labs Labs Labs: Blood Type O POSITIVE Antibody Screen NEGATIVE Hct 36.7 % (37-47) L Hgb 12.2 g/dL (12.0-15.0) Syphilis Total Ab Non-reactive Hepatitis C Antibody Non-Reactive (Nonreactive) Rhogam given: No Assessment & Plan (1) Encounter for trial of labor: (2) 39 weeks gestation of : (3) Rubella non-immune status, antepartum: PLAN: Plan IOL with pitocin
[2023-10-27] MEDS: Oxytocin 15 Units/NS 250ml 15 UNITS/250 ML IV.SOLN 2 UNITS IV (08:56)
[2023-10-27 09:01] LABS: Syphilis Antibodies Non-reactive
[2023-10-27] MEDS: LACTATED RINGERS 500 ML 999 ML IV (11:46)
[2023-10-27] MEDS: CHLORHEXIDINE GLUC 2% CLOTH 1 EACH TOWELETTE TOPICAL (11:46)
[2023-10-27] MEDS: fentaNYL-bupivacaine (epidural) 100 ML BAG EPIDURAL ×2 (12:30→18:24)
[2023-10-27] MEDS: Lactated Ringers 1,000 ML 200 ML IV (17:02)
--- NOTE | 2023-10-27 17:02 | PCM.PN.OB ---
Subjective Subjective AROM for mec stained fluid. IUPC placed without difficulty Objective Data Objective Data Vital Signs: Vital Signs Temp Pulse Resp BP Pulse Ox 98.4 F 98 15 128/80 H 98 10/27/23 15:57 10/27/23 15:57 10/27/23 15:57 10/27/23 15:57 10/27/23 15:09 Weight: 103.419 kg Body Mass Index (BMI) 40.4 Intake & Output: Intake and Output for Last 24 Hours 10/25/23 10/26/23 10/27/23 23:59 23:59 23:59 Intake Total 1373.47 / 1373.47 Output Total 700 / 700 Balance 673.47 / 673.47 Lab / Micro Data 10/27/23 07:40 Labs: Laboratory Results - last 24 hr 10/27/23 07:40: WBC 9.0, RBC 4.14 L, Hgb 12.2, Hct 36.7 L, MCV 88.6, MCH 29.5, MCHC 33.2, RDW Std Deviation 43.8, RDW Coeff of Juanita 13.6, Plt Count 234, MPV 9.2, Immature Gran % (Auto) 0.400, Neut % (Auto) 74.3 H, Lymph % (Auto) 16.1 L, [place] % (Auto) 8.1, Eos % (Auto) 0.9, Baso % (Auto) 0.2, Absolute Neuts (auto) 6.7, Absolute Lymphs (auto) 1.44, Nucleated RBC % 0, Syphilis Total Ab Non-reactive, Blood Type O POSITIVE, Antibody Screen NEGATIVE Physical Exam Const alert and no apparent distress General Appearance: cooperative HEENT normocephalic Resp normal respiratory effort Manual OB Exam: dilated 4, effaced 50 and station -3 Extremity no calf tenderness General Extremity: edema Skin no wounds Rashes: No rashes noted Psych activity/motor behavior normal NST FHR Rate Baby A Baseline: 140 Variability:: Moderate Accelerations:: 15 x 15 Decelerations:: None NST Reactive:: Yes FHR Category:: Category I Uterine Activity:: q 3 Assessment & Plan (1) 39 weeks gestation of : (2) Encounter for trial of labor: PLAN: S/P AROM. Pit per protocol
[2023-10-27] MEDS: Ondansetron 4 MG/2 ML Vial IV (18:45)
--- NOTE | 2023-10-27 21:42 | EX.PCM.OBRPT ---
Assessment & Plan (1) Rubella non-immune status, antepartum: (2) Vaginal after (): Maternal Data Information Final OLIVIA: 10/29/23 Gestational age: 39+5 Vaginal Delivery Maternal Presentation Maternal Presentation: Elective Induction Type of Induction: Pitocin Operative Information Date of Procedure: 10/27/23 Pre-Operative Diagnosis: IOL previous c/s for cord prolapse, S/p successful Post-Operative Diagnosis: same Surgery / Procedure Performed: Spontaneous Vaginal Delivery Type of Anesthesia: Epidural Drain: Acevedo to straight drain Estimated Blood Loss: 100 cc Time of Delivery: 21:26 Findings Description of Procedure: Patient pushed over an intact peritoneum. With 3 pushes she delivered the head MIKE followed by the anterior and posterior shoulders without difficulty. The infant was placed on the maternal abdomen. The infant cried immediately on delivery. The cord was clamped and cut. Cord blood was collected. The placenta was delivered with gentle tractions. There were no lacerations. Presentation: Vertex and MIKE Amniotic Membrane Rupture Type: Artificial Amniotic Fluid Description: Lightly stained meconium Placental Delivery Description: Spontaneous Placenta Disposition: [facility] Cord Vessel Description: 3 Vessels Cord Entanglement: None Infant A Gender: Male (1 minute): 8 (5 minute): 9 Delayed Cord Clamping: Yes Post Vaginal Delivery Medications Given After Delivery: IV Pitocin Episiotomy Description: None Laceration: None Complication Complications: None
[2023-10-27] MEDS: Oxytocin 15 Units/NS 250ml 15 UNITS/250 ML IV.SOLN 83 UNITS IV (22:02)
[2023-10-28] MEDS: Acetaminophen 500 MG Tablet 1000 MG PO ×3 (00:48→21:17)
[2023-10-28] MEDS: 0.9% Saline Lock 10 ML Syringe IV (00:55)
[2023-10-28 03:50] VITALS: BP 134/82; PULSE 97; RESP 16; TEMP 36.3; O2SAT 97
--- NOTE | 2023-10-28 06:35 | PN.OBGYN_ITS ---
Subjective Subjective Doing well. No complaints. Moderate lochia. Bottle feeding. Pain controlled. Good PO and ambulating well. Objective Data Objective Data Vital Signs: Vital Signs Temp Pulse Resp BP Pulse Ox O2 Del Method 97.3 F L 97 16 134/82 H 97 Room Air 10/28/23 03:50 10/28/23 03:50 10/28/23 03:50 10/28/23 03:50 10/28/23 03:50 10/28/23 03:50 Oxygen Delivery Method Room Air Weight: 103.419 kg Body Mass Index (BMI) 40.4 Intake & Output: Intake and Output for Last 24 Hours 10/26/23 10/27/23 10/28/23 23:59 23:59 23:59 Intake Total 3285.64 / 3285.64 250 / 250 Output Total 1000 / 1000 180 / 180 Balance 2285.64 / 2285.64 70 / 70 Lab / Micro Data 10/27/23 07:40 Labs: Laboratory Results - last 24 hr 10/27/23 07:40: WBC 9.0, RBC 4.14 L, Hgb 12.2, Hct 36.7 L, MCV 88.6, MCH 29.5, MCHC 33.2, RDW Std Deviation 43.8, RDW Coeff of Juanita 13.6, Plt Count 234, MPV 9.2, Immature Gran % (Auto) 0.400, Neut % (Auto) 74.3 H, Lymph % (Auto) 16.1 L, [place] % (Auto) 8.1, Eos % (Auto) 0.9, Baso % (Auto) 0.2, Absolute Neuts (auto) 6.7, Absolute Lymphs (auto) 1.44, Nucleated RBC % 0, Syphilis Total Ab Non- reactive, Blood Type O POSITIVE, Antibody Screen NEGATIVE ROS Constitutional Constitutional: Denies fatigue, fever(s) or malaise Eyes Eyes: Denies change in vision ENT HEENT: Denies dizziness or headache(s) Cardiovascular Cardiovascular: Denies chest pain, dyspnea or lightheadedness Respiratory/Chest Respiratory/Chest: Denies cough or dyspnea Gastrointestinal Gastrointestinal: Denies change in bowel habits Genitourinary Genitourinary: Denies burning urination or genital lesions Integumentary Integumentary: Denies rash Neurologic Neurologic: Denies confusion, dizziness, headache(s), numbness or weakness Physical Exam Const alert and no apparent distress Narrative: Fundus firm, below umbilicus. Assessment & Plan (1) Vaginal after (): (2) Rubella non-immune status, antepartum:
[2023-10-28 08:43] VITALS: BP 122/87; PULSE 76; RESP 18; TEMP 36.2; O2SAT 97
--- NOTE | 2023-10-28 10:09 | DCINST_ITS ---
Discharge Instructions Diet Discharge Diet: No restrictions Activity Discharge Activity: May Drive and May Shower May resume sexual activity in: 6 weeks Weight Bearing Status: Weight bearing as tolerated Lifting Restrictions: nothing heavier than baby Dressing / Incision Call your doctor if you observe: Fever of 101 or Higher, Coldness, Increased Pain, Numbness or Tingling, Change in Color, Inability to urinate, Inability to have a bowel movement, Using more than 1 pad per hour, Shortness of breath, Dizziness, Swelling in the ankles, Chest pain, Prolonged hiccupping, Increased palpitations (irregular heartbeat), Calf discomfort and Uncontrolled pain Follow Up Care Please Follow Up With: Araceli Mcdowell MD When: 1-2 weeks for early visit 6 weeks for exam Test Results: Test results from this visit will be discussed in further detail at your follow- up appointment, if applicable. Discharge Plan Admission Admit Date/Time: 10/27/23 07:15 Primary Reason for Your Visit: Delivery Attending Provider: Araceli Mcdowell Primary Care Provider: Care Physician,Carmina Primary Instructions Patient Instructions: After a Vaginal Discharge Orders/Prescriptions Prescriptions: Continued multivit [id number] 1-dha 1 EACH capsule 1 ea PO DAILY Discontinued famotidine 20 MG tablet 20 mg PO DAILY Referrals / Follow Up: Care Physician,No Primary [Primary Care Provider] - Disposition Disposition (needs filled in before D/C Order can be placed): Home, Self Care
[2023-10-28 12:43] VITALS: BP 123/95; PULSE 82; RESP 18; TEMP 36.2; O2SAT 98
[2023-10-28 17:05] VITALS: BP 130/89; PULSE 69; RESP 18; TEMP 36.1; O2SAT 98
[2023-10-28 20:50] VITALS: BP 129/92; PULSE 73; RESP 16; TEMP 36.3; O2SAT 100
== END 2023-10-28 22:29 | disposition home or self-care (01) | DRG 560 ==
PROVIDERS: Admitting Provider Obstetrics & Gynecology; Visit Provider Obstetrics & Gynecology
DX: O34.219 Maternal care for unspecified type scar from previous cesarean delivery (principal); Z37.0 Single live birth; O77.0 Labor and delivery complicated by meconium in amniotic fluid; Z3A.39 39 weeks gestation of pregnancy
CPT/HCPCS: 59025; 59050; 85025; 86780; 86850; 86900; 86901; 99221; J7120; A4216; G0378; J2405